=== PATIENT | female | born 1955 | race Caucasian/White ===

== ENCOUNTER 2016-10-18 08:38 | Emergency (ER) | payer BC ==
[2016-10-18 09:14] VITALS: BP 113/67
--- NOTE | 2016-10-18 10:30 | UC ---
Respiratory Complaint HPI - HPI Summary HPI Summary: 61 YO FEMALE WITH COUGH AND CHEST TIGHTNESS SOME SPUTUM NO FEVER CHILLS AND MYALGIAS NO N/V/D NO CP - History of Current Complaint Chief Complaint: UCRespiratory Stated Complaint: COUGH Time Seen by Provider: 10/18/16 10:19 Hx Obtained From: Patient Hx Last Menstrual Period: n/a Onset/Duration: Gradual Onset, Lasting Days - 3 Timing: Constant Severity Initially: Mild Severity Currently: Moderate Pain Intensity: 0 Pain Scale Used: 0-10 Numeric Character: Cough: Productive Aggravating Factors: Deep Breaths Alleviating Factors: Nothing Associated Signs And Symptoms: Positive: Chills - Allergies/Home Medications Allergies/Adverse Reactions: Allergies Allergy/AdvReac Type Severity Reaction Status Date / Time No Known Allergies Allergy Verified 10/18/16 09:14 Home Medications: Home Medications Aspirin [Aspirin Adult Low Dose] 81 mg PO DAILY 10/18/16 [History Confirmed ] PMH/Surg Hx/FS Hx/Imm Hx Previously Healthy: Yes Endocrine History Of: Denies: Diabetes Cardiovascular History Of: Denies: Hypertension, Pacemaker/ICD Cancer History Of: Denies: Breast Cancer - Surgical History Surgical History: Yes Surgery Procedure, Year, and Place: CSP FUSION 2011,BLADDER LIFT 1990 - Family History Known Family History: Positive: Hypertension - Social History Alcohol Use: None Substance Use Type: None Smoking Status (MU): Light Every Day Tobacco Smoker Review of Systems Constitutional: Negative Skin: Negative Eyes: Negative ENT: Negative Respiratory: Cough Cardiovascular: Negative Gastrointestinal: Negative Genitourinary: Negative Motor: Negative Neurovascular: Negative Musculoskeletal: Negative Neurological: Negative Psychological: Negative All Other Systems Reviewed And Are Negative: Yes Physical Exam Triage Information Reviewed: Yes Appearance: Well-Appearing, No Pain Distress, Well-Nourished Vital Signs: Initial Vital Signs Temp 99.1 F 10/18/16 09:05 Pulse 79 10/18/16 09:05 Resp 20 10/18/16 09:05 BP 113/67 10/18/16 09:05 Pulse Ox 98 10/18/16 09:05 Vital Signs Reviewed: Yes Eyes: Positive: Conjunctiva Clear ENT: Positive: Hearing grossly normal, TMs normal. Negative: Nasal congestion, Nasal drainage, Tonsillar swelling, Tonsillar exudate, Trismus, Muffled/hoarse voice Dental: Negative: Gross Decay/Caries @, Abscess @ Neck: Positive: Supple, Nontender, No Lymphadenopathy Respiratory: Positive: No respiratory distress, No accessory muscle use, Wheezing - WITH FORCED EXPIRATION Cardiovascular: Positive: RRR, No Murmur. Negative: Tachycardia, Bradycardia Musculoskeletal: Positive: ROM Intact, No Edema Neurological Exam: Normal Neurological: Positive: Alert Psychological Exam: Normal Skin Exam: Normal UC Diagnostic Evaluation - Laboratory O2 Sat by Pulse Oximetry: 98 - NORMAL/NOT HYPOXIC Respiratory Course/Dx - Differential Dx/Diagnosis Provider Diagnoses: ACUTE BRONCHITIS Discharge - Discharge Plan Condition: Stable Disposition: HOME Prescriptions: Amoxicillin (*) 875 mg PO BID #20 tab Patient Education Materials: Acute Bronchitis (ED) Referrals: Roderick Springer MD [Primary Care Provider] - 4 Days (IF NOT BETTER) Additional Instructions: CONTINUE MUCINEX RECHECK FOR WORSENING SYMPTOMS OR IF NOT BETTER TOWARDS THE END OF THE WEEK
== END 2016-10-18 10:30 | disposition home or self-care (01) ==
LOC: UCCORT 08:38
DX: J20.9 Acute bronchitis, unspecified (principal); F17.200 Nicotine dependence, unspecified, uncomplicated
CPT/HCPCS: 99212; G0463

== ENCOUNTER 2017-09-12 13:33 | Emergency (ER) | payer BC ==
[2017-09-12 14:27] VITALS: BP 109/64
--- NOTE | 2017-09-12 14:48 | UC ---
Throat Pain/Nasal Esequiel HPI - HPI Summary HPI Summary: 62 y/o female presents to the urgent care c/o RT ear pain and sore throat since yesterday. Ear pain is 8/10 and is radiating to her neck. Sore throat is 5/10 with swallowing. Pt has had the common cold for the past week, Pt denies fever, cough, SOB, ARELLANO, abdominal pain, decrease hearing, dizziness, N/V/D - History of Current Complaint Chief Complaint: UCEar Stated Complaint: EAR ACHE/ST Time Seen by Provider: 09/12/17 14:32 Hx Obtained From: Patient Hx Last Menstrual Period: age 40s Onset/Duration: Gradual Onset, Lasting Days - 1 day, Still Present, Worse Since - this morning Severity: Moderate Pain Intensity: 8 - Rt ear pain Pain Scale Used: 0-10 Numeric Cough: None Associated Signs & Symptoms: Positive: Dysphagia. Negative: Fever - Epiglottits Risk Factors Epiglottis Risk Factors: Negative - Allergies/Home Medications Allergies/Adverse Reactions: Allergies Allergy/AdvReac Type Severity Reaction Status Date / Time No Known Allergies Allergy Verified 09/12/17 14:27 PMH/Surg Hx/FS Hx/Imm Hx Previously Healthy: Yes - Pt denies PMHX - Surgical History Surgical History: Yes Surgery Procedure, Year, and Place: CSP FUSION 2011,BLADDER LIFT 1990 - Family History Known Family History: Positive: Cardiac Disease, Hypertension Family History: Stroke - Social History Occupation: Retired Lives: With Family Alcohol Use: None Substance Use Type: None Smoking Status (MU): Light Every Day Tobacco Smoker Review of Systems Constitutional: Negative Skin: Negative Eyes: Negative ENT: Sore Throat, Ear Ache - RT ear pain Respiratory: Negative Cardiovascular: Negative Gastrointestinal: Negative Genitourinary: Negative Motor: Negative Neurovascular: Negative Musculoskeletal: Negative Neurological: Negative Psychological: Negative Is Patient Immunocompromised?: No All Other Systems Reviewed And Are Negative: Yes Physical Exam Triage Information Reviewed: Yes Vital Signs: Initial Vital Signs Temp 98.1 F 09/12/17 14:20 Pulse 71 09/12/17 14:20 Resp 20 09/12/17 14:20 BP 109/64 09/12/17 14:20 - Additional Comments Vital signs: reviewed General: well developed, well nourished female sitting in the examining table w/ o any apparent distress Skin: [place], warm and dry, no evidence of atopic dermatitis, psoriasis, seborrhea. HEENT: -Head: atraumatic, non tender; no scalp dermatitis. -Eyes: sclera and conjunctiva clear, PERRLA, EOMI -Ears: no pre- or postauricular lymphadenopathy or erythema; RT external ear canal with erythema and yellowish purulent discharge, pinna tenderness on palpation, Unable to visualize Rt TM , LF external ear canal clear and LF TM WNL. Good light reflex. No fluid level, vesicles, or bullae. No perforation. -Nose/Face: erythematous and edematous nasal mucosa with clear rhinorrhea, no frontal or maxillary sinus tender to palpation. -Mouth/Throat: Mucous membrane moist, posterior pharynx clear, no erythema or exudates. Neck: supple, FROM, nontender, no lymphadenopathy, no meningismus. Chest: Clear to auscultation, normal breath sounds Abd: soft, Bowel sounds active, Nontender. Back: no spinal or CVAT Neuro: A&O x4, GCS 15, no focal neuro deficits, normal behavior for age. Throat Pain/Nasal Course/Dx - Course Course Of Treatment: 62 y/o female presents to the urgent care c/o RT ear pain and sore throat since yesterday. Ear pain is 8/10 and is radiating to her neck. Sore throat is 5/10 with swallowing. Pt has had the common cold for the past week, Pt denies fever, cough, SOB, ARELLANO, abdominal pain, decrease hearing, dizziness, N/V/D. Hx obtained. Pt with pahryngitis and Rt otitis externa on examination. Pt with a RT otitis externa on examination. Pt Rx Ciprofloxacin otic drops. and ibuprofen PO for pain. If symptoms do not improve or worsen to return to the urgent care or f/u with PCP for further management. Pt understood and agreed with D/C instructions. - Differential Dx/Diagnosis Differential Diagnosis/HQI/PQRI: Influenza, Laryngitis, Otitis Media, Peritonsillar Abscess, Pharyngitis, Sinusitis, URI, Other - otitis externa Provider Diagnoses: 1- Rt acute otitis externa. 2-Acute pharyngitis Discharge - Discharge Plan Condition: Stable Disposition: HOME Prescriptions: Ciprofloxacin HCl (Otic) [Ciprofloxacin 0.2% EAR DROPS] 0.2 % OT BID #1 robert Ibuprofen TAB* [Motrin TAB* 800 MG] 800 mg PO Q6H #20 tab Patient Education Materials: Otitis Externa (ED) Referrals: Roderick Springer MD [Medical Doctor] - If Needed Additional Instructions: 1- Please apply Ciprofloxacin otic as directed . 2-Please take ibuprofen PO q6-8hrs prn as instructed after meals to alleviate pain and swelling. Increase fluid intake, eat well, rest and avoid strenuous exercise 3-If symptoms do not improve or worsen please return to the urgent care or f/u with your PCP for further evaluation and treatment.
== END 2017-09-12 15:04 | disposition home or self-care (01) ==
LOC: UCCORT 13:33
DX: H60.501 Unspecified acute noninfective otitis externa, right ear (principal); J02.9 Acute pharyngitis, unspecified; F17.210 Nicotine dependence, cigarettes, uncomplicated
CPT/HCPCS: 87651; 99212; G0463

== ENCOUNTER → 2019-02-16 09:51 | Day surgery (SDC) | payer BC ==
--- NOTE | 2019-02-13 22:16 | HP ---
CC: Dr. Roderick Springer * HISTORY AND PHYSICAL: DATE OF PLANNED ADMISSION AND SURGERY: 02/16/19 HISTORY OF PRESENT ILLNESS: Mrs. Avery is a 63-year-old white female who is admitted with suspicious bladder lesions for cystoscopy and bladder biopsies. Mrs. Avery is a chronic heavy smoker whom I have been following since 2005 because of asymptomatic microscopic hematuria. She had periodic cystoscopies and imaging of her kidneys and no abnormalities were noted. In August 2018, I did a cystoscopy which showed some hyperemia of the mid left trigone. I repeated the cystoscopy 6 weeks later and the hyperemia did improve. At that time, her urine cytologies were negative. The cystoscopy was repeated again 2 weeks ago and the hyperemia had recurred and urine cytology showed atypical cells. CT urogram was normal showing no abnormal filling defects in the ureters or collecting systems, and no solid renal masses or abnormalities. Because of the above history and findings, the patient is admitted for cystoscopy and bladder biopsies. PAST MEDICAL HISTORY AND SYSTEM REVIEW: The patient is otherwise healthy. PAST SURGICAL HISTORY: She had a surgery for cervical fusion. She had undergone bladder neck suspension for stress urinary incontinence about 30 years ago. MEDICATIONS: She is on no chronic medications. ALLERGIES: She denies any allergies to medications. FAMILY HISTORY: Relevant for colon cancer in her mother, lung CA in her father. PERSONAL HISTORY: She is a chronic heavy smoker. She does not drink alcohol. She does not use illicit drugs. PHYSICAL EXAMINATION GENERAL: Pleasant white female, who looks older than her age. VITAL SIGNS: Blood pressure 110/70, pulse of 74, oxygen saturation 98% on room air. LUNGS: Clear. HEART: Regular and rhythmic, no murmurs. ABDOMEN: Soft. No masses, no tenderness and no CVA tenderness. PELVIC: Exam done at the time of the cystoscopy showed no pelvic masses. IMPRESSION: Chronic microscopic hematuria in a chronic smoker and suspicious lesion in the mid trigone and the bladder neck on cystoscopy and normal CT urogram. PLAN: Plan is for cystoscopy and bladder biopsies. I discussed the above plans in detail with the patient and her , and all their questions were answered. [id number]/[facility] #: [id number] VANE
[~2019-02-16 09:51] MED LIST: Buffered Lidocaine 1% SYRIN* 1 ML/SYRINGE INTRADERM ONE; Dexamethasone TAB* 4 MG ONE; Dexamethasone TAB* 4 MG PO ONE; DiMENhydriNATE IV* 50 MG/ML VIAL IV PUSH PRN; Famotidine IV* 10 MG/ML 2 ML (20 mg) IV ONE; Famotidine IV* 10 MG/ML 2 ML (20 mg) ONE; Iohexol 180 (CONTRAST) 10 ML SDV IV ONE; KETAMINE HCL* 50 MG/ML 10 ML VIAL ONE; Lactated Ringers 1000 ML Bag* 1,000 ML IV SCH; Midazolam* 1 MG/ML 5 ML VIAL (5 MG) ONE; Morphine 4 MG/ML VIAL (1 ml) 4 MG/ML VIAL IV PRN; Naloxone* 0.4 MG/ML 1 ML VIAL IV PRN; Ondansetron ODT TAB* 4 MG ONE; Ondansetron TAB* 4 MG PO ONE; PROCHLORPERAZINE INJ 5 MG/ML 2 ML VIAL IV PRN; cefTRIAXone(*) 1 GM ADVAN/BAG ONE; fentaNYL* 50 MCG/ML 2 ML VIAL (100 MCG VIAL) IV PRN; fentaNYL* 50 MCG/ML 2 ML VIAL (100 MCG VIAL) ONE; oxyCODONE/Acetamin 5/325 MG* TAB PO PRN
[2019-02-16 13:24] VITALS: BP 151/79
--- NOTE | 2019-02-16 17:14 | OP ---
CC: Dr. Springer OPERATIVE REPORT: DATE OF OPERATION: 02/16/19 DATE OF : 55 SURGEON: Mark Livingston MD. ANESTHESIOLOGIST: Dr. Kamran Zamarripa. ANESTHESIA: General. PRE-OP DIAGNOSIS: Suspicious bladder lesions (left trigone). POST-OP DIAGNOSIS: Pending pathology. OPERATIVE PROCEDURES: 1. Cystoscopy. 2. Biopsies of left trigone. 3. Left retrograde pyelography and placement of left ureteral stent (6-Angolan). INDICATION FOR PROCEDURE: Ms. Avery is a 63-year-old white female who is a chronic heavy smoker and whom I have been following for several years because of microscopic hematuria. Her work-up in the past has been negative. Recent cystoscopy showed hyperemia and irregularity of the mucosa of the left trigone. Urine cytology showed atypical cells. CT urogram showed no abnormal filling defects in the collecting systems or the ureters. Because of the above history and findings, the patient is admitted for bladder biopsies. PATHOLOGY AT CYSTOSCOPY: There was again noted irregularity of the mucosa of the left trigone, very close to the left ureteral orifice. The right trigone and orifice looked normal. The rest of the bladder wall looked normal without any abnormal lesions or lesions suggestive of carcinoma in situ. A left retrograde pyelography showed no hydronephrosis. DESCRIPTION OF PROCEDURE: After successful general anesthesia, the patient was placed in the lithotomy position and was prepped and draped for a cystoscopy. Cystoscopy was performed. The bladder was carefully inspected and the above findings were noted. A total of 3 biopsies were obtained from the left trigone. One of the biopsies was close to the left orifice, but did not involve it. Because of concern about developing edema of the left orifice postoperatively, it was decided to place a stent. A flexible tip guidewire introduced into the left orifice. Retrograde pyelography was performed. There was a small degree of extravasation from the retrograde. A size 6-Angolan stent was then placed with the proximal end coiling in the renal pelvis and distal end coiling inside the bladder. Additional fulguration of the resected tissue and of the abnormal mucosa in the trigone was performed. At the completion of the procedure, there were no suspicious lesions seen. The stent was in good position. There was good hemostasis. The cystoscope was removed and a size 16-Angolan Hernández catheter was passed inside the bladder and the balloon inflated with 10 cc of water. The patient tolerated the procedure well and left the operating room in good condition. There was no blood loss and the specimen was bladder biopsies, trigone. Because of the presence of the stent and the extravasation noted when the retrograde was performed, and because of concern of systemic absorption mitomycin-C will not be given in the PACU, . [id number]/[facility] #: [id number] [facility]
== END | disposition home or self-care (01) ==
LOC: OR 09:51
PROVIDERS: ATTEND Urology
DX: N32.9 Bladder disorder, unspecified (principal); R31.21 Asymptomatic microscopic hematuria; Z72.0 Tobacco use
CPT/HCPCS: 76000; 88305; A9270-GY; C1876; J0696; J2250; J3010; J8540

== ENCOUNTER 2019-09-03 10:39 | Emergency (ER) | payer BC ==
[2019-09-03 11:01] VITALS: BP 121/72
--- NOTE | 2019-09-03 12:01 | UC ---
Ear Complaint HPI - HPI Summary HPI Summary: Patient is a 64yo female presenting with R ear pain x2 days that she states is radiating down to her neck and throat. Patient states it feel full "like water is stuck in there." Denies tinnitus. Denies vertigo. Denies decreased hearing. Denies drainage from ear. Denies n/v. Denies other URI symptoms. States similar feeling of fullness in L ear started this morning, but no pain. States she thinks water from the shower may have caused it. Also notes this has happened in the past and she was diagnosed with swimmer's ear. - History of Current Complaint Chief Complaint: UCEar Stated Complaint: RT EAR PAIN Hx Obtained From: Patient Hx Last Menstrual Period: age 40s Onset/Duration: Gradual Onset, Lasting Days Severity Initially: Moderate Severity Currently: Moderate Pain Intensity: 7 Pain Scale Used: 0-10 Numeric - Allergies/Home Medications Allergies/Adverse Reactions: Allergies Allergy/AdvReac Type Severity Reaction Status Date / Time No Known Allergies Allergy Verified 09/03/19 11:01 Home Medications: Home Medications Ibuprofen TAB* [Advil TAB*] 200 mg PO Q6H PRN 09/03/19 [History Confirmed ] Multivitamins/Minerals TAB* [Theragran/minerals TAB*] 1 tab PO DAILY 09/03/19 [ History Confirmed 09/03/19] PMH/Surg Hx/FS Hx/Imm Hx - Surgical History Surgical History: Yes Surgery Procedure, Year, and Place: CSP FUSION 2011, BLADDER LIFT 1990 - Family History Known Family History: Positive: Cardiac Disease, Hypertension Family History: Stroke - Social History Alcohol Use: None Substance Use Type: None Smoking Status (MU): Light Every Day Tobacco Smoker Amount Used/How Often: 5 cigarettes a day,smoked approx 40 years Review of Systems All Other Systems Reviewed And Are Negative: No Constitutional: Positive: Negative Eyes: Positive: Negative ENT: Positive: Sore Throat - R side radiating from R ear, Ear Ache - R ear. Negative: Nasal Discharge, Sinus Congestion, Sinus Pain/Tenderness Respiratory: Positive: Negative. Negative: Cough Cardiovascular: Positive: Negative Gastrointestinal: Positive: Negative Musculoskeletal: Positive: Negative Neurological: Positive: Negative Physical Exam Triage Information Reviewed: Yes Appearance: Well-Appearing, No Pain Distress, Well-Nourished Vital Signs: Initial Vital Signs Temp 97.4 F 09/03/19 10:57 Pulse 77 09/03/19 10:57 Resp 14 09/03/19 10:57 BP 121/72 09/03/19 10:57 Pulse Ox 98 09/03/19 10:57 Vital Signs Reviewed: Yes ENT: Positive: Hearing grossly normal, Pharynx normal, TMs normal - cerumen impaction of R ear. cerumen removed to reveal n/l R TM. nl light reflex and landmarks b/l. TMs intact, no effusions., Uvula midline, Other - EAC without erythema or drainage b/l. Negative: Nasal congestion, Nasal drainage Neck exam: Normal Neck: Positive: Supple, Nontender, No Lymphadenopathy - no pre- or post auricular LND Respiratory Exam: Normal Respiratory: Positive: Lungs clear, Normal breath sounds, No respiratory distress Cardiovascular Exam: Normal Cardiovascular: Positive: RRR Neurological: Positive: Alert Psychological: Positive: Age Appropriate Behavior Skin Exam: Normal - no erythema Ear Complaint Course/Dx - Course Course Of Treatment: I removed large amount of hardened cerumen from R ear. Patient noted "pop with immediate relief" upon removal of cerumen. Removal of cerumen revealed normal R TM. Instructed to use decongestant as well, as fullness may be combination of cerumen and congestion. Patient voiced understanding and agreed with treatment plan. - Differential Dx/Diagnosis Differential Diagnosis/HQI/PQRI: Pharyngitis, URI Provider Diagnosis: Impacted cerumen, right ear Discharge ED - Sign-Out/Discharge Documenting (check all that apply): Patient Departure All imaging exams completed and their final reports reviewed: No Studies - Discharge Plan Condition: Stable Disposition: HOME Patient Education Materials: Cerumen Impaction (ED) Referrals: [facility] [Outside] - If Needed Additional Instructions: You had a large amount of ear wax removed from your right ear today. Refrain from placing objects in the ear, including Qtips. A decongestant may also help relieve symptoms. Follow up with your PCP or the [facility] below if symptoms persist. - Billing Disposition and Condition Condition: STABLE Disposition: Home - Attestation Statements Provider Attestation: This patient was not seen by me. I was available for consult. Chart reviewed. ML
== END 2019-09-03 12:41 | disposition home or self-care (01) ==
LOC: UCCORT 10:39
DX: H61.21 Impacted cerumen, right ear (principal); J02.9 Acute pharyngitis, unspecified; F17.210 Nicotine dependence, cigarettes, uncomplicated
CPT/HCPCS: 99211; G0463